=== PATIENT | female | born 1955 | race Caucasian/White ===

== ENCOUNTER → 2018-05-28 15:16 | Outpatient (REF) | payer MEDICAID, SELFPAY ==
[2018-05-28 21:24] LABS: Anion Gap 8.8 mmol/L (3-11); BUN 13 mg/dL (7-18); CO2 25.2 mmol/L (21.0-32.0); CREATININE 0.89 mg/dL (0.55-1.02); Chloride 101 mmol/L (98-107); Glucose 90 mg/dL (70-100); Potassium 4.3 mmol/L (3.5-5.1); Sodium 135 mmol/L (136-145); TSH (W/Ref FT4) 1.64 uIU/mL (0.358-3.74)
== END ==
LOC: NCHCN 15:16
PROVIDERS: Visit Provider Nurse Practitioner Family
DX: R51 Headache (principal); I10 Essential (primary) hypertension; I48.0 Paroxysmal atrial fibrillation; I38 Endocarditis, valve unspecified
CPT/HCPCS: 80048; 83735; 84443; 85025

== ENCOUNTER 2018-06-11 14:42 | Outpatient (REF) | payer MEDICAID, SELFPAY ==
[2018-06-11 21:11] LABS: Abs Immature Grans 0.04 k/cumm (0.0-0.09); Absolute Basophil Count 0.02 k/cumm (0.0-0.2); Absolute Lymphocyte Count 2.32 k/cumm (1.2-3.4); Absolute Monocyte Count 0.72 k/cumm (0.11-0.7); Absolute Neutrophil Count 6.12 k/cumm (1.2-6.7); Basophils % 0.2; Eosinophils % 1.1; HCT 40.7 % (36.0-46.0); HGB 13.7 g/dL (12.0-15.5); Immature Grans % 0.4; Lymphocytes % 24.9; Mean Corp. HGB Concentration 33.7 g/dL (32.0-36.0); Mean Corpuscular Hemoglobin 28.4 pg (27.0-33.0); Mean Corpuscular Volume 84.3 fL (80-95); Mean Platelet Volume 9.9 fL (8.0-11.0); Monocytes % 7.7; Neutrophils % 65.7; Platelet Count 288 x1000/uL (130-400); RBC 4.83 m/cumm (4.00-5.20); RBC Distribution Width 13.6 % (11.7-14.6); White Blood Cell Count 9.32 k/cumm (4.4-10.8)
[2018-06-11 21:25] LABS: Anion Gap 10.5 mmol/L (3-11); BUN 23 mg/dL (7-18); CO2 29.5 mmol/L (21.0-32.0); CREATININE 0.89 mg/dL (0.55-1.02); Calcium 9.5 mg/dL (8.5-10.1); Chloride 91 mmol/L (98-107); Glucose 129 mg/dL (70-100); NT-proBNP 246 pg/mL; Potassium 3.8 mmol/L (3.5-5.1); Sodium 131 mmol/L (136-145)
== END 2018-06-11 15:02 ==
LOC: NCHCN 14:42
PROVIDERS: PCP Nurse Practitioner Family; Visit Provider Nurse Practitioner Family
DX: I10 Essential (primary) hypertension (principal); R51 Headache
CPT/HCPCS: 80048; 83880; 85025

== ENCOUNTER 2018-07-01 00:51 | Outpatient (CLI) | payer MEDICAID, SELFPAY ==
--- NOTE | 2018-07-01 15:03 | DI.MAMMO_ITS ---
SYMPTOM/DIAGNOSIS: SCREENING, Z12.31 MAMMOGRAMS: Mammograms were interpreted according to the usual protocol including computer analysis with CAD system, tomosynthesis and C view imaging. Comparison with prior examinations. Breast density C. No masses or microcalcifications are seen. There is nothing to suggest malignancy. IMPRESSION: Negative mammogram. Routine screening is recommended. Category I. MQSA ASSESSMENT OF FINDINGS: Negative. Category 1. Patient will receive a letter notifying them of these results. Bi-RADS category C. The breasts are heterogeneously dense, which may obscure small masses.
== END 2018-07-01 01:11 ==
PROVIDERS: PCP Nurse Practitioner Family; Visit Provider Nurse Practitioner Family
DX: Z12.31 Encounter for screening mammogram for malignant neoplasm of breast (principal)
CPT/HCPCS: 77063; 77067

== ENCOUNTER 2018-07-17 15:09 | Outpatient (REF) | payer MEDICAID, SELFPAY ==
[2018-07-17 21:09] LABS: ALT 30 U/L (12-78); AST 22 U/L (15-37); Alkaline Phosphatase 94 U/L (46-116); Anion Gap 12.1 mmol/L (3-11); BUN 16 mg/dL (7-18); Bilirubin, Total 0.3 mg/dL (0.2-1.0); CO2 28.9 mmol/L (21.0-32.0); CREATININE 0.81 mg/dL (0.55-1.02); Calcium 10.1 mg/dL (8.5-10.1); Chloride 93 mmol/L (98-107); Glucose 97 mg/dL (70-100); Potassium 3.6 mmol/L (3.5-5.1); Sodium 134 mmol/L (136-145); Total Protein 6.9 g/dL (6.4-8.2)
[2018-07-20 09:26] LABS: Hepatitis C Ab w Rflx HCV PCR Reactive (NEGAT)
[2018-07-21 14:43] LABS: HCV RNA Detection Quantitative Undetected IU/mL (UNDECT)
== END 2018-07-17 15:29 ==
LOC: NCHCN 15:09
PROVIDERS: PCP Nurse Practitioner Family; Visit Provider Nurse Practitioner Family
DX: R06.09 Other forms of dyspnea (principal); R51 Headache; I38 Endocarditis, valve unspecified; G47.00 Insomnia, unspecified; D18.03 Hemangioma of intra-abdominal structures; I48.0 Paroxysmal atrial fibrillation; I10 Essential (primary) hypertension; Z95.2 Presence of prosthetic heart valve; Z11.59 Encounter for screening for other viral diseases
CPT/HCPCS: 80053; 86803; 87522

== ENCOUNTER 2025-06-20 18:36 | Outpatient (REF) | payer MEDICARE, SELFPAY ==
[2025-06-20 19:48] LABS: Abs Immature Grans 0.04 10^3/uL (0.0-0.06); HCT 40.7 % (36.0-46.0); HGB 13.0 g/dL (11.2-15.7); Immature Grans % 0.4 %; MCH 29.5 pg (27.0-33.0); MCHC 31.9 % (32.0-36.0); MCV 93 fL (80-95); MPV 9.3 fL (8.0-11.0); Platelet Count 312 10^3/uL (130-400); RBC 4.40 10^6/uL (3.93-5.22); RDW 13.2 % (11.7-14.6); RDW-SD 44.6 fL; WBC 10.55 10^3/uL (4.4-10.8)
[2025-06-20 20:29] LABS: ALT 29 U/L (14-59); AST 18 U/L (15-37); Albumin 4.2 g/dL (3.4-5.0); Alkaline Phosphatase 116 U/L (46-116); Anion Gap 7.9 mmol/L (3-11); BUN 16 mg/dL (7-18); Bilirubin, Total 0.2 mg/dL (0.2-1.0); CO2 28.1 mmol/L (21.0-32.0); Calcium 9.5 mg/dL (8.5-10.1); Chloride 102 mmol/L (98-107); Estimated GFR 79.22 (mL/min/1.73m2); Ferritin 58 ng/mL (8-252); Glucose 91 mg/dL (74-106); Magnesium 2.6 mg/dL (1.8-2.4); Potassium 4.4 mmol/L (3.5-5.1); Sodium 138 mmol/L (136-145); TSH (W/Ref FT4) 2.13 uIU/mL (0.36-3.74); Total Protein 7.1 g/dL (6.4-8.2)
[2025-06-20 21:06] LABS: Hemoglobin A1C 5.6 % (<5.7)
[2025-06-21 19:28] LABS: Calculated LDL 110 mg/dL (<100); Cholesterol 182 mg/dL (<200); HDL Cholesterol 41 mg/dL (>or=50); Triglyceride 155 mg/dL (<150)
[2025-06-21 21:15] LABS: Hepatitis C Ab w Rflx HCV PCR Negative (Negative)
[2025-06-22 19:55] LABS: Vitamin D 25 Total 36 ng/mL (30-100)
== END 2025-06-20 18:37 | disposition home or self-care (01) ==
LOC: NCHCN 18:36
PROVIDERS: PCP Nurse Practitioner Family; Visit Provider Nurse Practitioner Family
DX: F51.01 Primary insomnia (principal); R45.1 Restlessness and agitation; Z00.00 Encounter for general adult medical examination without abnormal findings; M81.0 Age-related osteoporosis without current pathological fracture
CPT/HCPCS: 80053; 80061; 82306; 86803; 82728; 83036; 83735; 84443; 85025

== ENCOUNTER → 2025-08-03 02:13 | Outpatient (CLI) | payer MEDICARE, SELFPAY ==
--- NOTE | 2025-08-03 08:24 | DI.MAMMO_ITS ---
Exam(s) MAMMO SCREENING EXAM: MAMMO SCREENING CLINICAL HISTORY: SCREENING MAMMO Z12.31. TECHNIQUE: Bilateral full field digital CC and MLO mammographic images were obtained with 3D tomosynthesis and utilizing computer aided detection (CAD). COMPARISON: Prior outside mammograms were reviewed. FINDINGS: Asymmetric tissue medially in left breast is unchanged 2018. Small benign-appearing nodular density measuring 5 mm in the left breast seen 4 cm in from the nipple on the CC view and 4.5 cm above the nipple on the MLO view is unchanged. Inferiorly located skin mole in the right breast is again noted. However, there also 2 small nodular densities seen in the right breast on the 3D MLO view, both measuring approximately 5 x 4 mm and located 5 and 6 cm in from the nipple on the 3D MLO view. Requires further imaging. There are no malignant-appearing microcalcification groups in this region or elsewhere in either breast. There is no significant architectural distortion nor skin thickening-retraction. IMPRESSION: 1. No radiographic evidence malignancy in left breast. Stable left breast findings. 2. There 2 nodular densities in the right breast as described above which were not evident on prior mammograms. Spot compression MLO view and complete right breast ultrasound recommended. BI-RADS Category 0 - Incomplete: Need additional imaging evaluation Breast Density - Category C - The breast are heterogeneously dense, which may obscure small masses. Breast density Category C or D implies that the patient has dense breast tissue. Dense breast tissue can make it harder to find cancer on a mammogram. Dense breast tissue is also associated with an increased risk of breast cancer. This information about the result of the mammogram report was provided to the patient to raise their awareness. Use this report when you speak with the patient about their risks for breast cancer, which includes their family history. At that time, you may recommend additional screening tests (Ultrasound or MRI) as these tests may add significant information. A negative radiographic report should not delay biopsy if a dominant or clinically suspicious mass is present. Up to ten percent of cancers are not identified on mammography. A negative report may reinforce clinical impression. Adenosis and dense breasts may obscure an underlying neoplasm. False positive reports average 6 to 10%. Patient will receive a letter notifying them of these results.
== END ==
PROVIDERS: PCP Nurse Practitioner Family; Visit Provider Nurse Practitioner Family
DX: Z12.31 Encounter for screening mammogram for malignant neoplasm of breast (principal)
CPT/HCPCS: 77063; 77067

== ENCOUNTER → 2025-08-10 01:17 | Outpatient (CLI) | payer MEDICARE, SELFPAY ==
--- NOTE | 2025-08-10 | DI.US_ITS ---
Exam(s) MG MAMMO SCREEN CALL BACK UNI US BREAST RT COMPLETE EXAM: MG MAMMO SCREEN CALL BACK UNI CLINICAL HISTORY: F/U [facility] MAMMO, 2 NODULAR DENSITIES RT BREAST, R92.8. TECHNIQUE: Mediolateral oblique spot compression digital Mammography views of the rightbreast with Tomosynthesis and right breast ultrasound. COMPARISON: MG MG mammo screening from 07/01/2018 MG WC Mammo Digital Screening Bilat from 09/28/2020 MG WC Mammo Digital Screening Bilat from 11/22/2021 MG Standard Screening - Combo[facility] from 11/28/2023 MG MG MAMMO SCREENING from 08/03/2025 US US BREAST RT COMPLETE from 08/10/2025 FINDINGS: Mammography/Tomosynthesis: Masses: Persistent circumscribed nodules in the inferior right breast. Architectural Distortion: None seen. Microcalcifictions: No suspicious pleomorphic-type are seen. Skin Thickening/Nipple Retraction: None. Right breast US: Echotexture: Normal appearance of the glandular tissue. Shadowing: No suspicious foci. Cyst: 3 x 5x 4 centimeter cyst 6 o'clock position 3 cm from the nipple. 3 x 3 x 6 millimeter cyst 3 cm from the nipple at the 7 o'clock position. Also at the 7 o'clock position, 2 cm from the nipple, there is a 4 x 3 x 4 millimeter cyst. Solid lesions: None seen. Ductal dilation: None. IMPRESSION: 1. No evidence of malignancy is noted. Small cyst in the inferior right breast. 2. Unless there is more urgent need, follow-up screening mammography is recommended, as per [place] [employer] guidelines. 3. The findings were discussed with the patient on the date of the examination. BI-RADS Category 2 - Benign Findings Breast Density - Category C - The breast are heterogeneously dense, which may obscure small masses. Breast density Category C or D implies that the patient has dense breast tissue. Dense breast tissue can make it harder to find cancer on a mammogram. Dense breast tissue is also associated with an increased risk of breast cancer. This information about the result of the mammogram report was provided to the patient to raise their awareness. Use this report when you speak with the patient about their risks for breast cancer, which includes their family history. At that time, you may recommend additional screening tests (Ultrasound or MRI) as these tests may add significant information. A negative radiographic report should not delay biopsy if a dominant or clinically suspicious mass is present. Up to ten percent of cancers are not identified on mammography. A negative report may reinforce clinical impression. Adenosis and dense breasts may obscure an underlying neoplasm. False positive reports average 6 to 10%. Patient will receive a letter notifying them of these results.
--- NOTE | 2025-08-10 10:31 | DI.DEXA_ITS ---
Exam(s) XR DEXA BONE DENSITY W/WO TIMUR EXAM: XR DEXA BONE DENSITY W/WO TIMUR CLINICAL HISTORY: ASYMPTOMATIC MENOPAUSAL STATE, Z78.0 TECHNIQUE: [employer] C densitometer analysis of left hip, lumbar spine and left forearm. Lateral survey image of the thoracic and lumbar spine. COMPARISON: No exams were available for comparison FINDINGS: Lateral view of the thoracic and lumbar spine shows no evidence of compression fractures. Bone mineral density measurements of the lumbar spine correspond to a total T- score of -2.6, in the osteoporotic range. Bone mineral density measurements of the left hip correspond to a total T-score of negative 1.6. The femoral neck T-score is -1.5, in the osteopenic range.. Theleft forearm bone mineral density measurements correspond to a T-score of the distal 3rd of -2.4, in the osteopenic range. IMPRESSION: Osteopenia of the hip and forearm. Osteoporosis of the lumbar spine.
== END ==
PROVIDERS: PCP Nurse Practitioner Family; Visit Provider Nurse Practitioner Family
DX: R92.8 Other abnormal and inconclusive findings on diagnostic imaging of breast (principal); Z78.0 Asymptomatic menopausal state
CPT/HCPCS: 76642; 77063; 77067; 77080